=== PATIENT | female | born 1975 | race African-American/Black ===

== ENCOUNTER 2023-09-25 14:21 | Emergency (ER) | payer OTHER ==
[~2023-09-25] VITALS: Ht 180.3 cm; Wt 104.5 kg
[~2023-09-25 14:21] MED LIST: NOCURR
[2023-09-25 14:28] VITALS: TEMP 98.2
[2023-09-25] MEDS ORDERED: HYDROCODONE/ACETAMINOPHEN 5-325 MG TABLET PO ONE (16:00)
[2023-09-25] MEDS ORDERED: KETOROLAC TROMETHAMINE 30 MG/ML VIAL IM ONE (16:00)
[2023-09-25] MEDS ORDERED: LIDOCAINE 5% TRANSDERMAL PATCH TD ONE (16:00)
[2023-09-25] MEDS ORDERED: LIDO1ADH63 TP (16:39)
[2023-09-25] MEDS ORDERED: CYCL-448 PO (16:39)
[2023-09-25] MEDS ORDERED: TRAM-559 PO (16:39)
[2023-09-25 17:06] VITALS: BP 141/45; PULSE 75; RESP 15
== END 2023-09-25 17:08 | disposition home or self-care (01) ==
LOC: EMS 14:28
DX: M54.9 Dorsalgia, unspecified (principal); F41.9 Anxiety disorder, unspecified; F32.A Depression, unspecified; I10 Essential (primary) hypertension; F12.90 Cannabis use, unspecified, uncomplicated; Z98.51 Tubal ligation status
CPT/HCPCS: 99283; 96372; J1885